=== PATIENT | male | born 1990 | race African-American/Black ===

== ENCOUNTER 2019-01-09 18:04 | Emergency (ER) | payer MEDICAID ==
[~2019-01-09] VITALS: Ht 177.8 cm; Wt 69.9 kg
[2019-01-09 18:12] VITALS: BP 121/75
--- NOTE | 2019-01-09 18:18 | NUR ---
SMALL HEALING LACERATION TO LEFT FOREARM, SUTURES INTACT.
[2019-01-09] MEDS ORDERED: DOXY100C43 PO (18:24)
== END 2019-01-09 18:36 | disposition home or self-care (01) ==
LOC: ER 18:05
DX: S51.812D Laceration without foreign body of left forearm, subsequent encounter (principal); L08.89 Other specified local infections of the skin and subcutaneous tissue; Z79.899 Other long term (current) drug therapy; Z48.02 Encounter for removal of sutures; X58.XXXD Exposure to other specified factors, subsequent encounter
CPT/HCPCS: 99283

== ENCOUNTER 2019-05-18 20:14 | Emergency (ER) | payer MEDICAID ==
[~2019-05-18] VITALS: Ht 177.8 cm; Wt 68.0 kg
[2019-05-18 20:27] VITALS: BP 132/81
[2019-05-18] MEDS ORDERED: mupirocin 2% ointment 22GM TP STA (21:53)
== END 2019-05-18 22:06 | disposition home or self-care (01) ==
LOC: ER 20:14
DX: L02.511 Cutaneous abscess of right hand (principal); F17.200 Nicotine dependence, unspecified, uncomplicated
CPT/HCPCS: 99283